=== PATIENT | female | born 1970 | race Caucasian/White ===

== ENCOUNTER 2016-08-13 12:31 | Emergency (ER) | payer OTHER ==
[2016-08-13 13:02] VITALS: BP 134/70
--- NOTE | 2016-08-13 13:50 | RAD ---
INDICATION: Right foot injury COMPARISON: None TECHNIQUE: AP, lateral, and oblique views were obtained. FINDINGS: There is no acute fracture or dislocation. There are heel spurs. There is soft tissue swelling over the dorsum of the forefoot. IMPRESSION: NO ACUTE FRACTURE.
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
== END 2016-08-13 14:50 | disposition home or self-care (01) ==
LOC: UCEAST 12:31
DX: S90.31XA Contusion of right foot, initial encounter (principal); S93.601A Unspecified sprain of right foot, initial encounter; W20.8XXA Other cause of strike by thrown, projected or falling object, initial encounter; Y93.9 Activity, unspecified; Y92.9 Unspecified place or not applicable; Z88.0 Allergy status to penicillin
CPT/HCPCS: 99213; G0463

== ENCOUNTER 2017-04-03 17:04 | Emergency (ER) | payer SELFPAY ==
[2017-04-03 17:23] VITALS: BP 143/91
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
--- NOTE | 2017-04-03 18:08 | RAD ---
INDICATION: Pressure injury to the left lower extremity. Relevant surgical history includes ACL surgery one year earlier. Patient experiencing pain at the medial left knee, left ankle, base of the fifth metatarsal and "all left leg". COMPARISON: None TECHNIQUE: 4 view radiograph of the left knee, 3 views of the left ankle and 3 views left foot. FINDINGS: The visualized bones of the left knee are well-corticated and properly aligned. The joint spaces are properly maintained. There is a small to moderate left knee joint effusion. There is no acute fracture, dislocation or other focal bony abnormality. 3 views of the ankle show the bones to be well corticated and appropriately aligned. The ankle mortise is symmetric. There is no acute fracture or dislocation involving the left ankle. Degenerative change includes enthesophyte formation at the insertion site of the Achilles tendon on the calcaneal tubercle. The bones of the left foot are well-corticated and appropriately aligned. No acute fracture or dislocation is identified. IMPRESSION: 1. Small left knee joint effusion without radiographically apparent fracture or dislocation. 2. No radiographically apparent traumatic injury of the left foot or ankle. If the patient's symptoms persist, follow-up imaging is recommended.
== END 2017-04-03 18:27 | disposition home or self-care (01) ==
LOC: UCEAST 17:04
DX: S83.92XA Sprain of unspecified site of left knee, initial encounter (principal); F17.210 Nicotine dependence, cigarettes, uncomplicated; W22.8XXA Striking against or struck by other objects, initial encounter; Y92.9 Unspecified place or not applicable; S93.402A Sprain of unspecified ligament of left ankle, initial encounter; S93.602A Unspecified sprain of left foot, initial encounter
CPT/HCPCS: 99212; G0463

== ENCOUNTER 2017-11-22 13:19 | Emergency (ER) | payer SELFPAY ==
[2017-11-22 14:45] VITALS: BP 139/76
[2017-11-22] MEDS ORDERED: Gelfoam 12-7 ADSORBABL SPONGE* 1 EA SPONGE ONE (16:11)
[2017-11-22] MEDS ORDERED: Ibuprofen TAB* 600 MG PO ONE (16:15)
[2017-11-22] MEDS ORDERED: Lidocaine 1% MPF* 2 ML VIAL ONE (16:45)
[2017-11-22] MEDS ORDERED: Silver Nitrate/Potassium Nitr* 1 EA STICK ONE (16:45)
[2017-11-22] MEDS ORDERED: traMADol TAB* 50 MG PO ONE (17:19)
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
== END 2017-11-22 17:24 | disposition home or self-care (01) ==
LOC: UCEAST 13:19
DX: S61.002A Unspecified open wound of left thumb without damage to nail, initial encounter (principal); W26.8XXA Contact with other sharp object(s), not elsewhere classified, initial encounter; Y93.89 Activity, other specified; Y92.9 Unspecified place or not applicable; Z82.49 Family history of ischemic heart disease and other diseases of the circulatory system; Z88.0 Allergy status to penicillin; Z88.8 Allergy status to other drugs, medicaments and biological substances; Z87.891 Personal history of nicotine dependence
CPT/HCPCS: 17250; 99212; A9270-GY; G0463